=== PATIENT | female | born 1980 | race Caucasian/White ===

== ENCOUNTER 2017-05-26 06:55 | Day surgery (SDC) | payer OTHER ==
[~2017-05-26] VITALS: Ht 167.6 cm; Wt 88.0 kg
--- NOTE | ~2017-05-26 | OR ---
[facility] [address], [place] [address] Draft DATE OF OPERATION: 05/26/2017 SURGEON: Jorge Mansfield MD PREOPERATIVE DIAGNOSIS: Right-sided sore throat with right laryngeal lesion. POSTOPERATIVE DIAGNOSIS: Right-sided sore throat with right laryngeal lesion. PROCEDURE: Direct laryngoscopy and biopsy of right laryngeal lesion within the direct esophagoscopy. ANESTHESIA: General orotracheal, AERONAUTICAL ENGINEERING OFFICER, Heather. PREOPERATIVE HISTORY: Laura is a 36-year-old with a 5-month history of a right-sided sore throat. Exam in the office had shown right arytenoid nodule. She is taken to the operating for the above-mentioned procedures. OPERATIVE PROCEDURE AND FINDINGS: After informed consent, the patient was taken to the operating room, placed in the supine position, where general orotracheal anesthesia was induced. The patient and procedure were verified. The patient was repositioned. Anterior commissure laryngoscope was used to visualize the hypopharynx and larynx, all normal except the right vocal process of the arytenoid. There was some granular whitish nodular tissue. This was biopsied several bites with the up-biting cup forceps. Many cups sent to pathology in formalin. Bleeding was prominent, but soft afterwards. No other abnormalities in the laryngoscopy. The long esophagoscope was then passed down to about 30 cm with no abnormality seen. Re-inspection of the biopsy site showed no bleeding points. The patient was awakened, extubated, and transported to the recovery room in good condition. COMPLICATIONS: No complications. BLOOD LOSS: Minimal. PATIENT NAME: LAURA FARLEY OPERATIVE REPORT DATE OF : 78 PHYSICIAN: JORGE MANSFIELD MD REPORT #: [id number] REPORT IS CONFIDENTIAL AND NOT TO BE RELEASED WITHOUT AUTHORIZATION [address], [place] [address] Draft SPECIMEN: To pathology. DRAINS: No drains. Jorge Mansfield MD GC/CYNTHIA /[id number] PATIENT NAME: LAURA FARLEY OPERATIVE REPORT DATE OF : 78 PHYSICIAN: JORGE MANSFIELD MD REPORT #: [id number] REPORT IS CONFIDENTIAL AND NOT TO BE RELEASED WITHOUT AUTHORIZATION
[~2017-05-26 06:55] MED LIST: ALLEGRA ALLERG180 MG PO; BUPROPION HCL75 MG PO; CALCIUM + VITA1 EACH PO; EPIPEN 2-P0.3 MG/0.3 IM; NECON1 EAC1 PO; OMEPRAZOLE20 MG PO; SINGULAIR10 MG PO; VENTOLIN HFA18 GM INH; VITAMIN B COMP1 EACH PO
[2017-05-26] MEDS ORDERED: PROBIOTIC1 EAC1 PO (07:12)
--- NOTE | 2017-05-26 09:42 | NUR ---
05/26/17 0942 Leslie Hollingsworth 0936: PT AWAKE, AND TALKING DENINES PAIN AND NAUSEA. RESP EVEN AND UNLABORED. 0939: MD AT BEDSIDE. O2 REMOVED, O2 SAT 98%.
--- NOTE | 2017-05-26 10:15 | NUR ---
PT RETURNED FROM PACU. PT DENIES PAIN AND NAUSEA STATING "MY THROAT IS JUST A LITTLE SCRATCHY." PT TOELRATING PO FLUIDS AND DOES NOT WANT TO EAT AT THIS TIME. PT RESPONDING APPROPRIATLY TO QUESTIONS. CALLED. BED RAILS UP, CALL LIGHT WITHIN REACH. PT WATCHIGN TV.
--- NOTE | 2017-05-26 11:04 | NUR ---
PT STEADY ON FEET WITH ONE PERSON STAND BY ASSIST. PT VOIDS WITHOUT DIFFICULTY. PT TOLERATING PO FOOD AND FLUID. PT DENIES PAIN AND NAUSEA. PT DRESSES SELF. DISCHARGE INSTRUCTIONS REVIEWED WITH PT, PT VERBALIZES UNDERSTANDING OF INSTUCTIONS. SIGNIFICANT OTHER HERE TO SUPERVISOR BLOOD PT.
== END 2017-05-26 11:00 | disposition home or self-care (01) ==
LOC: DS 06:55 → OPS 06:55 → DS 08:30 → OPS 08:30
PROVIDERS: Otolaryngology
PROC: 0DJ08ZZ Inspection of Upper Intestinal Tract, Via Natural or Artificial Opening Endoscopic (ICD-10-PCS; principal; 2017-05-26 08:30)
PROC: 0CBS8ZX Excision of Larynx, Via Natural or Artificial Opening Endoscopic, Diagnostic (ICD-10-PCS; 2017-05-26 08:30)
DX: J04.0 Acute laryngitis (principal); J02.9 Acute pharyngitis, unspecified; J45.909 Unspecified asthma, uncomplicated; Z88.5 Allergy status to narcotic agent; Z98.890 Other specified postprocedural states; Z79.899 Other long term (current) drug therapy
CPT/HCPCS: 00320; 90674; J0330; J1100; J1885; J2250; J2405; J2704; J3010; J7120

== ENCOUNTER 2019-05-25 09:14 | Inpatient (IN) | payer OTHER ==
[~2019-05-25] VITALS: Ht 167.6 cm; Wt 95.2 kg
[~2019-05-25 09:14] MED LIST changes: +PROBIOTIC1 EAC1 PO
--- NOTE | 2019-05-25 09:26 | NUR ---
PT ARRIVED TO MED/SURG FLOOR VIA WHEELCHAIR RN TRANPORTED PT VIA WHEELCHAIR TO ROOM 116, PT ASKED IF SHE COULD HAVE A FEW MINUTES TO CALL FAMILY, ALSO TO DRESS IN HOSPITAL GOWN.
--- NOTE | 2019-05-25 09:40 | NUR ---
PT ARRIVED TO ROOM 116. PT RESTING SUPINE IN BED ALERT AND ORIENTED. PT ASSESSMENT COMPLETED. PT DENIES SOB, PAIN OR NAUSEA AT THIS TIME. CALL LIGHT IN REACH. NO NEEDS OR CONCERNS VOICED.
--- NOTE | 2019-05-25 11:45 | NUR ---
PT RESTING SUPINE IN BED WATCHING TV ALERT AND ORIENTED CALL LIGHT AND H2O IN REACH. NO NEEDS OR CONCERNS VOICED. PT DENIES NAUSEA, PAIN OR SOB.
--- NOTE | 2019-05-25 14:39 | NUR ---
IN TO SEE PATIENT. PT REPORTS INCREASED PAIN TO LOWER RIGHT QUADRANT. PRN IV OFIRMEV ADMINISTERED PER PT REQUEST. ASSESSMENT COMPLETED. CALL LIGHT IN REACH. NO NEEDS OR CONCERNS VOICED.
--- NOTE | 2019-05-25 14:40 | NUR ---
PT ALERT, ORIENTED AND SUPPORTED BY HER OFELIA. PT MENTIONED THAT SHE IS TO HAVE LAP APPY LATER THIS PM. SHE SEEMS COMFORTABLE, IN GOOD SPIRITS AND FEELS SHE IS INFORMED MUCH SHE FEELS SHE NEEDS TO KNOW. EXPLAINED TO PT THE SURGERY PROCESS, PT REQUESTED PRAYER. WILL FOLLOW NEEDED
[2019-05-25] MEDS ORDERED: BUPROPION XL300 MG PO (15:19)
[2019-05-25] MEDS ORDERED: DASETTA1 EACH PO (15:20)
[2019-05-25] MEDS ORDERED: MULTI-VITAMIN1 EACH PO (15:40)
--- NOTE | 2019-05-25 16:26 | NUR ---
PT OFF FLOOR TO OR AT THIS TIME ON HOSPITAL BED IN CARE OF EDUCATIONAL AID.
--- NOTE | 2019-05-25 17:45 | NUR ---
Medications reconciled using pharmacy records and patient interview
--- NOTE | 2019-05-25 19:30 | NUR ---
05/25/191929 Jackie Gilbert 1920: PT ARRIVES TO PACU WITH MONOTYPE SETTER AND STEEL HANDLER'S. SHE WAKES UP EASILY/QUICKLY. SHE IS ABLE TO HAVE A CONVERSATION WITH STAFF. SHE DENIES ANY PAIN.
--- NOTE | 2019-05-25 19:53 | NUR ---
RECEIVED REPORT FROM ELE NYE. pt IN SURGERY AT TIME OF REPORT. FAMILY IN ROOM. NO REQUESTS AT THIS TIME. WHITEBOARD UPDATED.
--- NOTE | 2019-05-25 20:05 | NUR ---
pt ARRIVED TO FLOOR. RECEIVED REPORT FROM POPEYE BALDERRAMA. pt DROWSY ON 2L O2. ASSESSMENT AND VITALS DONE. EXPLAINED PLAN OF CARE. NO REQUESTS AT THIS TIME. DRY DRAINAGE NOTED AT TWO UPPER LAP SITES. MAGDA DRAIN DRESSING CDI, SEROSANGUINOUS DRAINAGE. AT BEDSIDE. CALL LIGHT WITHIN REACH.
--- NOTE | 2019-05-25 20:40 | NUR ---
pt RESTING IN BED. IV ABX INFUSING (SEE AUG). VITALS DONE. PRN PAIN MED GIVEN (SEE AUG). CALL LIGHT WITHIN REACH.
--- NOTE | 2019-05-25 21:15 | NUR ---
pt REQUESTED TO GET UP TO VOID. pt REPORTED FEELING LIGHTHEADED WHEN STANDING. UNSTABLE ON FEET. PIVOT TO BSC. VOIDED. UNSTEADY GETTING BACK IN BED. REPORTED "I'M OKAY WHEN I'M LAYING DOWN" ENCOURAGED pt TO CALL PRIOR TO AMBULATING. pt AND VERBALIZED UNDERSTANDING. CALL LIGHT WITHIN REACH.
--- NOTE | 2019-05-25 21:55 | NUR ---
IN TO ASSESS. VITALS RECORDED. IV ABX INFUSING (SEE MAR). NO CHANGE IN DRESSINGS. NICODERM PATCH REMOVED. CALL LIGHT WITHIN REACH.
--- NOTE | 2019-05-25 23:02 | NUR ---
pt REPORTING 7/10 PAIN. DID NOT FEEL THAT SHE COULD KEEP ORAL MEDS DOWN AT THIS POINT, BARELY TOLERATED JELLO. PRN GIVEN (SEE MAR). VITALS RECORDED. NO CHANGE IN DRESSINGS, MAGDA DRAINING SS FLUID. CALL LIGHT WITHIN REACH.
--- NOTE | 2019-05-26 00:13 | NUR ---
PUMP BEEPING, ERROR RESOLVED. pt REPORTED "MY PAIN IS FINE WHEN I'M LAYING HERE" pt WILL CALL WHEN SHE NEEDS PAIN MEDICATION. CALL LIGHT WITHIN REACH.
--- NOTE | 2019-05-26 01:06 | NUR ---
pt UP TO VOID, 1PA BSC. pt REPORTED DIZZYNESS. pt REPORTED 8/10 PAIN. PRN IV MED GIVEN (SEE MAR). pt RESTING IN BED. CALL LIGHT WITHIN REACH.
--- NOTE | 2019-05-26 02:05 | NUR ---
ASSESSMENT DONE. pt REPORTED 4/10 PAIN. IV ABX INFUSING (SEE MAR). VITALS AND I&O RECORDED. NO REQUESTS AT THIS TIME. CALL LIGHT WITHIN REACH.
--- NOTE | 2019-05-26 02:42 | NUR ---
SECOND ABX INFUSING (SEE MAR). pt UP TO VOID AND BACK TO BED, STATED "THAT WAS MUCH EASIER THIS TIME" PROVIDED CRACKERS AND PUDDING. NO FURTHER REQUESTS AT THIS TIME. CALL LIGHT WITHIN REACH.
--- NOTE | 2019-05-26 04:46 | NUR ---
ROUNDED ON pt. RESTING WITH EYES CLOSED, RESPIRATIONS REGULAR AND UNLABORED. CALL LIGHT WITHIN REACH.
--- NOTE | 2019-05-26 04:54 | NUR ---
pt ARRIVED DURING SHIFT FROM OR. DROWSY AT BEGINNING OF SHIFT, MORE AWAKE AT LAST ASSESSMENT. TOLERATING SMALL AMOUNTS OF PO INTAKE. LAP SITES X3, UPPER LAP SITES HAVE DRY DRAINAGE, NO NEW DRAINAGE NOTED, STERISTRIPS INTACT. LOWER LAP SITE COVERED BY TIMMY DRAIN DRESSING. TIMMY DRAINAGE SEROSANGINOUS. PAIN REQUIRED PRN OPIOID X1. IVF INFUSING, IV ABX. EXPERIENCED SOME DIZZINESS WHEN GETTING UP, USED BSC, 1PA. USES CALL LIGHT APPROPRIATELY.
--- NOTE | 2019-05-26 05:33 | NUR ---
pt CALLED TO VOID. 1PA TO BSC. PAIN 01/29, pt CRYING FROM PAIN. PRN GIVEN (SEE MAR). VITALS AND I&O RECORDED. NO FURTHER REQUESTS AT THIS TIME. CALL LIGHT WITHIN REACH.
--- NOTE | 2019-05-26 06:30 | NUR ---
ROUNDED ON pt. SITTING IN BED ON PHONE, AT BEDSIDE. pt REPORTED "MY PAIN IS NOT BAD" RATED 4/10. NO REQUESTS AT THIS TIME. CALL LIGHT WITHIN REACH.
--- NOTE | 2019-05-26 07:30 | NUR ---
Pt resting in bed. Pain controlled, was very painful at 0530 am. Spouse in room. Pt denies needs or concerns to go home. Devonte is off work for two weeks and will be home with her. Pt. denies DME. Plans to go home on dc.
--- NOTE | 2019-05-26 08:26 | NUR ---
IN TO SEE PATIENT. PT RESTING IN SEMIFOWLERS POSITION IN BED ALERT AND ORIENTED. CALL LIGHT AND H2O IN REACH. NO NEEDS OR CONCERNS VOICED. IV ABX INFUSING.
--- NOTE | 2019-05-26 08:49 | NUR ---
PT RESTING SUPINE IN BED ALERT AND ORIENTED. IV PUMP BEEPING, ABX NOT INFUSED, DISTAL OCCLUSION RESOLVED BY WRAPPING LEFT ARM LIGHTLY WITH COBAN AND WASH CLOTH PER PT REQUEST TO HELP HER REMEMBER NOT TO BEND LEFT ARM. IV ABX INFUSING AT THIS TIME AND CALL LIGHT AND H2O IN REACH. NO FURTHER NEEDS OR CONCERNS VOICED.
--- NOTE | 2019-05-26 09:25 | NUR ---
IV PUMP BEEPING, IV ABX COMPLETED SO NEW IV ABX HUNG AND INFUSING AT THIS TIME. ASSESSMENT COMPLETED. NO NEEDS OR CONCERNS VOICED.
--- NOTE | 2019-05-26 11:06 | NUR ---
PT RESTING IN SEMIFOWLERS POSITION IN BED. PT REPORTS PAIN OF 5/10 TO ABDOMEN. PRN PO IBUPROFEN ADMINISTERED PER PT REQUEST. CALL LIGHT AND H2O IN REACH. NO NEEDS OR CONCERNS VOICED.
--- NOTE | 2019-05-26 11:53 | NUR ---
Pt reports persisting adbominal pain of 4/10 prn po tylenol administered per pt request. call light adn h2o in [facility] no further needs or concerns voiced.
--- NOTE | 2019-05-26 12:46 | NUR ---
PT UP AMBULATING IN ROOM WITH SLOW BUT STEADY GAIT. PT IS ALERT AND ORIENTED AND DENIES NEEDS OR CONCERNS. CALL LIGHT AND H2O IN REACH. PT STATES PAIN IS NOW TOLERABLE.
--- NOTE | 2019-05-26 13:31 | NUR ---
PT UP AMBULATING IN RM, ANTICIPATING DC. PTS' MOTHER IN , PT STATED THAT HER PAIN IS MUCH BETTER THAN BEFORE SURGERY. EXTENDED A BLESSING, PT THANKED ME FOR COMING BY. WILL FOLLOW NEEDED
--- NOTE | 2019-05-26 15:56 | NUR ---
PT UP PACING IN LAPS AROUND HER BED AND IN TO THE BATHROOM, PT DENIES WANTING TO AMBULATE IN HALLS STATES "NO I WOULD RATHER JUST KEEP WALKING AROUND IN THE ROOM THANK YOU THOUGH." PT STATES " IS JOHANNA GOING TO BE IN TO DISCHARGE ME SOON?" INFORMED PT THAT MD IS LIKELY IN THE OR AT THIS TIME AND THAT HE MAY POSSIBLY ROUND WITH HIS PATIENTS AFTER HE IS FINISHED WITH HIS SURGICAL CASES. CALL LIGHT AND H2O IN REACH. ICE PACK PROVIDED PER PT REQUEST. PT STATES PAIN IS TOLERABLE AT THIS TIME AND THAT SHE WAS ABLE TO PASS SOME FLATULANCE RECENTLY BUT DENIES PASSING ANY STOOL. NO FURTHER NEEDS OR CONCERNS VOICED.
[2019-05-26] MEDS ORDERED: IBUPROFEN600 MG PO (17:29)
[2019-05-26] MEDS ORDERED: TYLENOL EXTRA500 MG PO (17:29)
--- NOTE | 2019-05-27 16:20 | OR ---
[facility] [address], [place] [address] Signed DATE OF OPERATION: 05/25/2019 SURGEON: Jace Spencer MD PREOPERATIVE DIAGNOSES: 1. Acute appendicitis. 2. Obesity. POSTOPERATIVE DIAGNOSIS: Acute appendicitis with some suspicion regarding neoplastic change of appendix. PROCEDURES PERFORMED: 1. Laparoscopy with laparoscopic lysis of adhesions. 2. Laparoscopic appendectomy, prolonged, complicated, difficult. ANESTHESIA: General endotracheal, Heather Liliana Kumar, FLATBED TRUCK DRIVER, and local 20 mL of 0.25% Marcaine with epinephrine. INDICATION: This 38-year-old white woman is a patient of Clover Solares PA-C at [facility] and also a patient of Dr. An Mi. Since Thursday (today is Thursday), she has had vague periumbilical pain, worsening and now in the right lower abdomen. She saw Clover Solares PA-C yesterday and concerns were raised for possible appendicitis and on that basis, CT scan was organized for today in the morning, which she underwent and I was called by Radiology Department that appendicitis was indeed identified on CT scan. She was markedly dehydrated and has been admitted to the hospital given fluid resuscitation, IV antibiotic, cefotetan, and Flagyl and now ready to undergo appendectomy preferred by laparoscopic approach. Clinical exam does not show peritonitis per se and she does not look particularly toxic. Her white count is only 4.6 and hematocrit 39.9. She is admitted at this time to undergo a laparoscopic appendectomy, possible open procedure. She understands the risks of bleeding, infection, failure of diagnosis, missed diagnosis, and need for other indicated procedures. She understands that she wished to proceed. FINDINGS: There is no sign of ascites or inflammatory fluid within the abdomen. The liver was normal. The gallbladder had mild chronic inflammatory changes. There were adhesions of Electronically Signed By: JACE SPENCER MD 05/27/19 6980 PATIENT NAME: KEVIN FARLEY OPERATIVE REPORT DATE OF : 78 REPORT #: [id number] PHYSICIAN: JACE SPENCER MD PCP: AN MI MD REPORT IS CONFIDENTIAL AND NOT TO BE RELEASED WITHOUT AUTHORIZATION [facility] [address] [place], [place] [address] Signed omentum to the right side of the abdomen which were taken down sharply. The appendix was impressively difficult to identify actually. Full rotation of the cecum and the right colon was undertaken. Ultimately, appendix was found to be directed inferiorly, laterally, and behind the terminal ileum. The ileum was normal. The appendix had definite significant severe inflammation in the distal 4 cm of it and more proximal 4 cm were normal. Appendix once excised was examined and has a strong suspicion in my view for the mucosa and wall of the appendix to possibly be neoplastic either carcinoid or appendiceal carcinoma or perhaps simply chronically inflamed. There is no sign of mucus or mucocele proper. DESCRIPTION OF PROCEDURE: The patient was brought to the operating room, given a general endotracheal anesthetic. Sequential compression device stockings used. Heparin subcutaneously administered. A Olsen catheter was placed. Preoperative antibiotics cefoxitin and Flagyl were used. After satisfactory general endotracheal anesthesia, the abdomen was prepared with a chlorhexidine solution and draped sterilely. An infraumbilical incision was made and using an open Jael cannula technique, pneumoperitoneum was achieved to a level of 14 mmHg of carbon dioxide gas. Intraabdominal inspection showed no sign of ascites or carcinomatosis. There were dense omental adhesions to the right upper abdominal wall. A 12 mm epigastric port was placed and using direct sharp dissection with parrot nose scissors, the adhesions were taken down to allow for more mobility of the epigastric port. The camera was replaced to that site. Initial manipulation of the right colon so forth was undertaken not identifying the appendix. The cecum and right colon appeared quite soft. There was some omental adhesion to the right colon, but certainly no purulent findings or marked inflammatory changes. The right lower quadrant incision was made to accommodate a 5 mm port and using two-hand manipulation, ultimately, the small bowel was retracted to the left side of the abdomen. Abdomen was tilted [id number]. The terminal ileum was identified as manifested by a small antimesenteric fat pad of Treves. The cecum had filmy adhesions laterally and the appendix was obviously retrocecal given the findings. Blunt dissection was undertaken of the cecum which resulted in a small amount of venous oozing in the area delaying further dissection requiring control with small clips. The teniae epiploica were identified and followed distalward towards the base of the cecum, but the appendix still was not visualized. The cecum was mobilized with blunt and sharp dissection to the midline looking for retrocecal appendix. It was not found there. Reestablishment of the anatomy of the teniae was undertaken followed down and ultimately a very subtle base of the appendix could be identified directed inferiorly and medially behind the ileum itself. Once the appendix was identified, it could be grasped and elevated. Blunt dissection, electrocautery, and meticulous care undertaken to mobilize the appendix, which was densely adherent to the retroperitoneum. Ultimately, the appendix could be more fully visualized and a globular markedly inflamed distal one-third of the appendix noted. Electronically Signed By: JACE SPENCER MD 05/27/19 0018 PATIENT NAME: KEVIN FARLEY OPERATIVE REPORT DATE OF : 78 REPORT #: [id number] PHYSICIAN: JACE SPENCER MD PCP: AN MI MD REPORT IS CONFIDENTIAL AND NOT TO BE RELEASED WITHOUT AUTHORIZATION [facility] [address] [place], [place] [address] Signed This was manipulated free with blunt and electrocautery dissection and an area of mesoappendix identified and transected with a KELLIE stapling device. This freed the appendix entirely. The Endo-KELLIE stapling device was used to transect the base of the appendix with a small portion of cecum. Complete excision was accomplished. The appendix was extracted through the infraumbilical port site after being placed in an Endobag. Appendix was evaluated and found to have marked inflammatory change and firmness in the distal one-third and thought likely to have a very dense fecalith. On the basis of curiosity, this might represent actually neoplasm. A 15 blade was used to incise the appendix without touching it of course and the appendiceal wall was markedly thickened and somewhat suspicion in my view for neoplastic change. There was certainly no fecalith. Irrigation was undertaken of the retrocecal area and staple lines were found to be hemostatic. A few clips had been applied to assure hemostasis. The right lower quadrant 5 mm port, a 7 mm flat Karl drain were placed in the retrocecal area and draped into the pelvis. Excess irrigation fluid was suctioned free. The drain was secured to the skin with nylon suture. The trocars were removed under direct visualization showing no sign of bleeding. The infraumbilical fascial incision was reapproximated with interrupted 0 Vicryl suture. All wounds copiously irrigated with saline solution and 20 mL of 0.25% Marcaine with epinephrine was injected locally for postoperative analgesic benefit. The wounds were then closed with interrupted 3-0 Vicryl. Steri-Strips were applied as was a gauze dressing to the drain site. The patient tolerated procedure well. Blood loss was less than 20 mL. Sponge, needle, and instrument counts reported as correct x3. MD LUIS Chen/CYNTHIA /[id number] cc: TERESA Hicks [facility] An Mi MD Electronically Signed By: JACE SPENCER MD 05/27/19 1620 PATIENT NAME: KEVIN FARLEY OPERATIVE REPORT DATE OF : 78 REPORT #: [id number] PHYSICIAN: JACE SPENCER MD PCP: AN MI MD REPORT IS CONFIDENTIAL AND NOT TO BE RELEASED WITHOUT AUTHORIZATION [facility] [address] [place] [id number] Signed Copies: AN MI MD ~ Electronically Signed By: JACE SPENCER MD 05/27/19 1620 PATIENT NAME: KEVIN FARLEY LENNIE OPERATIVE REPORT DATE OF : 78 REPORT #: [id number] PHYSICIAN: JACE SPENCER MD PCP: AN MI MD REPORT IS CONFIDENTIAL AND NOT TO BE RELEASED WITHOUT AUTHORIZATION
--- NOTE | 2019-05-27 16:20 | HP ---
[facility] [address] [place], [place] [address] Signed ADMISSION DATE: 05/25/2019 REASON FOR ADMISSION: Acute appendicitis. HISTORY OF PRESENT ILLNESS: This obese 38-year-old white woman, works at the [employer], is accompanied by her and her mother. Since Thursday (today is Thursday), she has had vague abdominal pain in the periumbilical area, now migrating to the right lower abdomen. She was seen by her primary provider, Clover Solares PA-C, yesterday and a CT scan was ordered for today. The patient has a distant history of right pyelonephritis with urinary tract infection. A CT scan was performed today at approximately 8:30 in the morning and I was called while in the operating room, advised by the Radiology Department that she was found to have appendicitis. On that basis, a direct admission for further evaluation and care was undertaken. The patient was incidentally noted to have some subcutaneous inflammatory fat stranding in the left lower abdomen and pelvis of uncertain etiology. The patient does note that she has had episodic pain in this area, not particularly troublesome right now, however. Her dominant problem is right lower abdomen. She has had some nausea, but no vomiting. She has not had fever or chills. Lab studies have been obtained since admission and her white count is only 4.6, hematocrit of 39.9, with platelets of 301,000. Her chem profile was essentially normal. AST and ALT elevated at 40 and 54 respectively. Beta-hCG is negative. The patient does take a control pill. Additionally, urinalysis is ordered but not yet obtained. PAST MEDICAL HISTORY: 1. Right pyelonephritis in 2007. 2. Sinus surgery in 2012. SOCIAL HISTORY: She is . She is accompanied by her and her mother at this time. She has not had a child. Her has a child in the household. REVIEW OF SYSTEMS: She denies any shortness of breath or chest pain. She has had no dysphagia, dysuria. Does have reflux symptoms from time to time. Has no dysphagia. Denies hematuria or hematemesis or blood per rectum. Electronically Signed By: JACE SPENCER MD 05/27/19 1620 PATIENT NAME: KEVIN FARLEY HISTORY AND PHYSICAL DATE OF : 78 REPORT #: [id number] PHYSICIAN: JACE SPENCER MD PCP: AN ANN MD REPORT IS CONFIDENTIAL AND NOT TO BE RELEASED WITHOUT AUTHORIZATION [facility] [address] [place], [place] [address] Signed MEDICATIONS: Medicines at admission include: 1. Ventolin inhaler as needed. 2. Bupropion 75 mg p.o. daily. 3. Tums tablets as needed. 4. EpiPen for allergies and particularly related to bee stings and venom wasp. 5. La Allergy 180 mg p.o. daily as needed. 6. Singulair (montelukast sodium) 10 mg tablet daily. 7. Omeprazole 20 mg p.o. daily. PHYSICAL EXAMINATION: GENERAL: This is an obese, but very well kept white woman accompanied by family. She does not look systemically toxic. HEENT: Mucous membranes are quite dry. Trachea is midline. CHEST: Clear. There is no wheeze at this time. HEART: Regular without murmur. ABDOMEN: Obese, but soft. There is mild tenderness in the left lower abdomen (Rovsing sign radiating to right side) as well as tenderness on deep palpation in the right lower quadrant at McBurney point. EXTREMITIES: Examination of the medial left thigh and groin area shows no sign of erythema, crepitus, or sign of active inflammation. ASSESSMENT: The patient has a history suggestive of acute appendicitis including origin of abdominal pain at the umbilicus now in the right lower abdomen with a CT scan finding consistent with appendicitis. She needs fluid resuscitation, IV antibiotics, and consideration for appendectomy later in the day. The risks of bleeding, infection, need for open procedure, failure to cure her problem, and other unforeseen complications were reviewed in detail. She understands, wished to proceed. Jace Spencer MD JM/MODL /[id number] Electronically Signed By: JACE SPENCER MD 05/27/19 1620 PATIENT NAME: KEVIN FARLEY HISTORY AND PHYSICAL DATE OF : 78 REPORT #: [id number] PHYSICIAN: JACE SPENCER MD PCP: AN ANN MD REPORT IS CONFIDENTIAL AND NOT TO BE RELEASED WITHOUT AUTHORIZATION [address] [address] Signed cc: Clover Solares PA-C Copies: ~ Electronically Signed By: JACE SPENCER MD 05/27/19 1620 PATIENT NAME: KEVIN FARLEY LENNIE HISTORY AND PHYSICAL DATE OF : 78 REPORT #: [id number] PHYSICIAN: JACE SPENCER MD PCP: AN ANN MD REPORT IS CONFIDENTIAL AND NOT TO BE RELEASED WITHOUT AUTHORIZATION
== END 2019-05-26 18:28 | disposition home or self-care (01) | DRG 343 ==
LOC: MS 09:14 → EDSTATUS 17:00 → MS 05-26 18:28
PROVIDERS: ADMIT Surgery
PROC: 0DTJ4ZZ Resection of Appendix, Percutaneous Endoscopic Approach (ICD-10-PCS; principal; 2019-05-25 17:00)
DX: K35.80 Unspecified acute appendicitis (principal); E66.9 Obesity, unspecified; F17.220 Nicotine dependence, chewing tobacco, uncomplicated; J45.909 Unspecified asthma, uncomplicated; K21.9 Gastro-esophageal reflux disease without esophagitis; E86.0 Dehydration; Z79.899 Other long term (current) drug therapy; Z88.5 Allergy status to narcotic agent; Z68.33 Body mass index [BMI] 33.0-33.9, adult
CPT/HCPCS: 00840; 80053; 82247; 82465; 83615; 84100; 84478; 84550; 84703; 85025; 90688; 94762; A9270; J0131; J0330; J0694; J1100; J1170; J1644; J1885; J2250; J2300; J2405; J2704; J3475; J7060; J7121

== ENCOUNTER 2021-01-17 08:00 | Day surgery (SDC) | payer OTHER ==
[~2021-01-17] VITALS: Ht 167.6 cm; Wt 102.3 kg
[~2021-01-17 08:00] MED LIST changes: +BUPROPION XL300 MG PO; +COLCHICINE0.6 M1 PO; +DASETTA1 EACH PO; +IBUPROFEN600 MG PO; +MULTI-VITAMIN1 EACH PO; +PLAQUENIL200 MG PO; +TYLENOL EXTRA500 MG PO; +ZESTRIL5 MG PO
[2021-01-17] MEDS ORDERED: PREDNISONE20 MG PO (08:27)
--- NOTE | 2021-01-17 11:12 | NUR ---
01/17/21 1112 Erin Escalante 1109 PATIENT ARRIVES TO PACU AWAKE BUT DROWSY. DENIES PAIN OR NAUSEA. RESTING WITH EYES CLOSED WHEN NOT STIMULATED. RESP EVEN AND UNLABORED, MASK AT 10 LITERS, DECREASED TO 6L ON ARRIVAL TO PACU.
[2021-01-17] MEDS ORDERED: IBUPROFEN600 MG PO (11:36)
[2021-01-17] MEDS ORDERED: OXYCODON-ACETA1 EAC2 PO (11:37)
--- NOTE | 2021-01-17 12:32 | NUR ---
[id number]: HARD SCRIPT PROVIDED TO PT SPOUSE TO TAKE TO PHARMACY TO BE FILLED. 1230: PT UP TO BATHROOM WITH RN ASSIST, STEADY GAIT. PT ABLE TO VOID 250 MLS YELLOW URINE WITH NO PROBLEMS. PT BACK TO DS RM 4, STATES SOME NAUSEA AFTER POSITION CHANGE; SEE EMAR. RED DRAINAGE NOTED ON GOWN, PT OFFERED NEW GOWN AND DENIES STATES, "I AM JUST GOING TO LAY DOWN AND PUT BLANKETS ON ANYWAY." PT STATES PAIN IS TOLERABLE AND RATES PAIN 3/10. CALL LIGHT WITHIN REACH.
--- NOTE | 2021-01-17 14:25 | NUR ---
PT STATES NAUSEA IS "BETTER" AND THAT PAIN IS NOW 6/10 AND WOULD LIKE SOMETHING FOR PAIN; SEE EMAR. PT PROVIDED CHOCOLATE PUDDING AND URMILA CRACKERS AND ENCOURAGED TO EAT WITH ORAL PAIN MEDICATION. 1430: PT DRESSINGS X4 REINFORCED WITH STERILE GAUZE AND PAPER TAPE PER PT REQUEST. PT WOULD LIKE TO GET DRESSED AT THIS TIME. PLAN TO ASSESS PAIN WITHIN NEXT 15-20 MINUTES AND PREPARE FOR DC HOME.
--- NOTE | 2021-01-17 14:51 | NUR ---
[id number]: PT UP TO BATHROOM WITH RN ASSIST, ABLE TO VOID QS WITH NO PROBLEMS. BACK TO DS RM 4 WITH SPOUSE AT BEDSIDE AND CALL LIGHT WITHIN REACH.
--- NOTE | 2021-01-17 16:35 | NUR ---
[id number]: PT RATES PAIN 3/10 AND DENIES ANY NAUSEA, READY TO DC HOME. DC INSTRUCTIONS PRESENTED TO PT AND IV REMOVED. PT DC FROM DS RM 4 VIA WC TO SPOUSE WAITING [facility] TO HOME.
--- NOTE | 2021-01-18 10:35 | OR ---
[facility] [address] [place], [place] [address] Signed DATE OF OPERATION: 01/17/2021 SURGEON: Jace Spencer MD PREOPERATIVE DIAGNOSES: 1. Chronic calculous cholecystitis. 2. Recent diagnosis systemic lupus erythematosus and reactive airways disease. POSTOPERATIVE DIAGNOSES: 1. Chronic calculous cholecystitis. 2. Recent diagnosis systemic lupus erythematosus and reactive airways disease. PROCEDURE: Laparoscopic cholecystectomy with intraoperative cholangiogram. ANESTHESIA: General endotracheal; Jace Vidal CRNA and local 20 mL of 0.25% Marcaine with epinephrine. INDICATION: This 40-year-old somewhat obese woman, who is a patient Dr. An Mi and known to me from the past having undergone laparoscopic appendectomy in 2019, for a very inflamed appendix. The patient has recently developed symptoms of right upper abdominal pain, particularly worse following meals and feeling rather sick. She has been diagnosed in June of this year with systemic lupus and does have reactive airways. She was found on gallbladder ultrasound to have a contracted gallbladder, which was difficult to evaluate regarding stones. She has findings highly consistent with cholecystitis (chronic) and on that basis is recommended for cholecystectomy preferred by laparoscopic approach. The risks of bleeding, infection, bile duct injury, need for open procedure and other unforeseen complications was reviewed with her. She understands and wished to proceed. FINDINGS: The gallbladder was not contracted at this time. It was somewhat distended and was chronically inflamed. There was an enlarged pericholecystic lymph node also. Cholangiogram was normal. The gallbladder once excised showed considerable cholesterolosis as well as a single 1 cm oblong gallstone. The liver was normal. There were some omental adhesions to the lower abdomen, but no other abnormality of note. DESCRIPTION OF PROCEDURE: Electronically Signed By: JACE SPENCER MD 01/18/21 1035 PATIENT NAME: KEVNI FARLEY OPERATIVE REPORT DATE OF : 78 REPORT #: [id number] PHYSICIAN: JACE SPENCER MD PCP: AN MI MD REPORT IS CONFIDENTIAL AND NOT TO BE RELEASED WITHOUT AUTHORIZATION [facility] [address] [place], [place] [address] Signed The patient was brought to the operating room, given a general endotracheal anesthetic. Preoperative antibiotic Ancef was given. Sequential compression device stockings were used and heparin subcutaneously administered. The abdomen was prepared with a chlorhexidine solution and draped sterilely. An infraumbilical incision was made and using an open Jael cannula technique, pneumoperitoneum achieved to a level of 14 mmHg of carbon dioxide gas. Intraabdominal inspection showed no sign of ascites or carcinomatosis. Three additional trocars were placed in usual configuration in the subxiphoid, right midclavicular, and right anterior axillary line. The gallbladder was elevated cephalad and retracted laterally and using blunt and electrocautery dissection, the triangle of Calot was dissected free ultimately identifying well the cystic duct. A clip was applied to the gallbladder cystic duct junction and a transverse choledochotomy made in the cystic duct. Egress of clear bile was noted. Using an Lyles-type cholangiocatheter, intraoperative cholangiography was undertaken showing free flow of contrast in biliary tree with prompt emptying into the duodenum. There was no sign of filling defect, ductal dilatation, or other abnormality. The catheter was removed and the cystic duct was then triply clipped and divided and dissected free in a retrograde fashion using electrocautery. The gallbladder was extracted through the infraumbilical port site, opened on the back table and found to have profound cholesterolosis as well as a single oblong yellow mulberry gallstone about 1 cm in size. Irrigation was undertaken in the subhepatic space. There was no sign of bile leak bleeding or other problems. Excess irrigation fluid was suctioned free. The trocars were removed under direct visualization. The infraumbilical fascial incision was reapproximated with interrupted 0 Vicryl suture. A 20 mL of 0.25% Marcaine with epinephrine was injected locally. The skin was then closed with interrupted 3-0 Vicryl. Steri-Strips were applied. She was ultimately extubated and transferred to the recovery room in good condition having suffered no complication. Sponge, needle, and instruments counts were reported as correct x3. MD LUIS Chen/MODL /[id number] cc: An Mi MD Electronically Signed By: JACE SPENCER MD 01/18/21 1035 PATIENT NAME: KEVIN FARLEY OPERATIVE REPORT DATE OF : 78 REPORT #: [id number] PHYSICIAN: JACE SPENCER MD PCP: AN MI MD REPORT IS CONFIDENTIAL AND NOT TO BE RELEASED WITHOUT AUTHORIZATION [address] [address] Signed Copies: AN MI MD ~ Electronically Signed By: JACE SPENCER MD 01/18/21 1035 PATIENT NAME: KEVIN FARLEY LENNIE OPERATIVE REPORT DATE OF : 78 REPORT #: [id number] PHYSICIAN: JACE SPENCER MD PCP: AN MI MD REPORT IS CONFIDENTIAL AND NOT TO BE RELEASED WITHOUT AUTHORIZATION
--- NOTE | 2021-01-18 15:56 | PATH ---
[facility] [address] [facility] [place] [address] Signed SPECIMEN(S): A GALLBLADDER WITH STONES SPECIMEN SOURCE: A. GALLBLADDER WITH STONES CLINICAL HISTORY: Laparoscopic cholecystectomy. Cholecystitis, cholelithiasis. FINAL PATHOLOGIC DIAGNOSIS: Gallbladder, cholecystectomy: - Chronic cholecystitis with cholesterolosis. - Cholelithiasis. NAL:caw:C2NR MICROSCOPIC EXAMINATION: Histologic sections of all submitted blocks are examined by light microscopy. These findings, together with the gross examination, support the pathologic diagnosis. GROSS DESCRIPTION: The specimen, labeled "SUSANNAH, A.," and designated on the requisition "gallbladder with stones," is received in formalin and consists of Specimen: Previously opened gallbladder. Dimensions: 7.5 x 4.0 x 0.4 cm. Serosa: [place]-mccabe and smooth. Cystic Duct: Unobstructed. Calculi: One yellow, roughened calculi (1.0 cm in greatest dimension). Mucosa: Green and velvety with yellow stippling. Wall thickness: 0.4 cm. Lymph node: No pericystic lymph nodes are grossly identified. Additional: None. Premium Note Interest Calculator Clerk sections are submitted in cassette (A1). AC (under the direct supervision of a pathologist) The Gross Description was prepared using a voice recognition system. The report was reviewed for accuracy; however, sound-alike word errors, addition and/or deletions may occur. If there is any question about this report, please contact Client Services. PERFORMING LABORATORY: The technical component was performed by [facility], [address] [place] [id number] (Photogrammetric Engineer: Rosalba Anaya MD; CLIA# [id number]). PATIENT NAME: KEVIN FARLEY PATHOLOGY DATE OF : 78 REPORT #: [id number] PHYSICIAN: JOSHUA PATHOLOGY PCP: AN ANN MD REPORT IS CONFIDENTIAL AND NOT TO BE RELEASED WITHOUT AUTHORIZATION [facility] [address] [place], [place] [address] Signed Professional [facility], [address] [address] (CLIA# [id number]). Diagnostician: Patricia Enrique MD Pathologist Electronically Signed 01/18/2021 Copies: ~ PATIENT NAME: KEVIN FARLEY PATHOLOGY DATE OF : 78 REPORT #: [id number] PHYSICIAN: JOSHUA BEAULIEU PCP: AN ANN MD REPORT IS CONFIDENTIAL AND NOT TO BE RELEASED WITHOUT AUTHORIZATION
== END 2021-01-17 15:20 | disposition home or self-care (01) ==
LOC: DS 08:00
PROVIDERS: ATTEND Surgery
PROC: BF10YZZ Fluoroscopy of Bile Ducts using Other Contrast (ICD-10-PCS; 2021-01-17)
PROC: 0FT44ZZ Resection of Gallbladder, Percutaneous Endoscopic Approach (ICD-10-PCS; principal; 2021-01-17 09:00)
DX: K80.10 Calculus of gallbladder with chronic cholecystitis without obstruction (principal); M32.9 Systemic lupus erythematosus, unspecified; J45.909 Unspecified asthma, uncomplicated; E66.01 Morbid (severe) obesity due to excess calories; I10 Essential (primary) hypertension; F17.220 Nicotine dependence, chewing tobacco, uncomplicated; K21.00 Gastro-esophageal reflux disease with esophagitis, without bleeding; Z88.0 Allergy status to penicillin; Z88.5 Allergy status to narcotic agent; Z79.52 Long term (current) use of systemic steroids; Z68.33 Body mass index [BMI] 33.0-33.9, adult; Z90.49 Acquired absence of other specified parts of digestive tract; Z91.030 Bee allergy status; Z91.038 Other insect allergy status
CPT/HCPCS: 00790; 74300; J0690; J1100; J1644; J1720; J1790; J1885; J2250; J2405; J2765; J3010; J7121; Q9967